=== PATIENT | female | born 1970 | race Caucasian/White ===

== ENCOUNTER 2019-09-07 04:24 | Inpatient (IN) ==
[2019-08-30 18:48] LABS: Appearance,Urine CLEAR; Bacteria,Urine 0 /hpf (0); Bilirubin,Urine NEG (NEG); Color,Urine YELLOW; Culture Indicated,Urine YES; Glucose,Urine (UA) NEGATIVE (NEG); Ketones,Urine NEG (NEG); Leukocyte Esterase,Urine 500 /uL (NEG); Nitrate,Urine NEG (NEG); Protein,Urine NEG (NEG); Specific Gravity,Urine 1.009 (1.000-1.035); Urine Blood NEG mg/dL (<0.03); Urine RBC 1 /hpf (0-1); Urine Squamous Epithelial Cell 4 /hpf (0-4); Urine Transitional Epi Cells 1 /hpf (0-2); Urine WBC 10 /hpf (0-4); Urobilinogen,Urine NEG (NEG)
[2019-08-30 19:39] LABS: Basophils # (Auto) 0 K/mcL (0.0-0.3); Basophils % (Auto) 0.3 % (0.0-2.0); Eosinophils # (Auto) 0.1 K/mcL (0.0-0.7); Eosinophils % (Auto) 0.8 % (0.0-7.0); Granulocytes % (Auto) 65.1 % (38.0-78.0); Hematocrit 38.9 % (36.0-48.0); Hemoglobin 13.1 g/dL (12.0-15.0); Lymphocytes # (Auto) 2.1 K/mcL (1.5-4.8); Lymphocytes % (Auto) 24.4 % (15.5-49.0); Mean Corpuscular HGB Conc 33.5 g/dL (31.0-36.0); Mean Platelet Volume 7.3 fL (7.4-10.4); Monocytes # (Auto) 0.8 K/mcL (0.1-0.9); Monocytes % (Auto) 9.4 % (1.0-12.0); Platelet Count 339 K/mcL (140-440); RBC 4.23 M/mcL (4.00-5.20); Red Cell Distribution Width 14.1 % (11.5-14.5); WBC 8.6 K/mcL (4.5-11.0)
[2019-08-30 19:47] LABS: Blood Urea Nitrogen 6 mg/dl (6-20); Calcium 9.5 mg/dl (8.6-10.4); Carbon Dioxide 27 mmol/L (22-30); Chloride 98 mmol/L (96-108); Glomerular Filtration Rate 102; Glucose 85 mg/dL (70-105); Prothrombin Time 12.8 sec (11.9-14.5)
[2019-09-07] MEDS ORDERED: ceFAZolin 2 GM in DEXTROSE 5% IN WATER 50 ML IV SCH (06:00)
[2019-09-07] MEDS ORDERED: 0.9 % SODIUM CHLORIDE 9 ML, KETOROLAC 30 MG, ROPIVACAINE HCL/PF 49.5 ML, EPINEPHrine 0.... IJ SCH (06:00)
[2019-09-07 06:04] LABS: Appearance,Urine CLEAR; Bilirubin,Urine NEG (NEG); Color,Urine YELLOW; Culture Indicated,Urine NO; Glucose,Urine (UA) NEGATIVE (NEG); Ketones,Urine NEG (NEG); Leukocyte Esterase,Urine NEG /uL (NEG); Nitrate,Urine NEG (NEG); Protein,Urine NEG (NEG); Specific Gravity,Urine 1.013 (1.000-1.035); Urine Blood NEG mg/dL (<0.03); Urobilinogen,Urine NEG (NEG)
[2019-09-07] MEDS ORDERED: SCOPOLAMINE 1 PATCH PATCH TOPICAL ONE (07:21)
[2019-09-07] MEDS ORDERED: DEXAMETHASONE 10 MG/ML VIAL IV ONE (07:40)
[2019-09-07] MEDS ORDERED: PROPOFOL 200 MG/20 ML VIAL IV ONE (07:40)
[2019-09-07] MEDS ORDERED: LIDOCAINE HCL/PF 100 MG/5 ML SYRINGE IV ONE (07:40)
[2019-09-07] MEDS ORDERED: ONDANSETRON 4 MG/2 ML VIAL IV ONE (07:40)
[2019-09-07] MEDS ORDERED: KETAMINE 100 MG/ML ML IV ONE (07:40)
[2019-09-07] MEDS ORDERED: TRANEXAMIC ACID 1,000 MG/10 ML VIAL IV ONE (07:40)
[2019-09-07] MEDS ORDERED: MIDAZOLAM 5 MG/5 ML VIAL IV ONE (07:40)
[2019-09-07] MEDS ORDERED: ROPIVACAINE HCL/PF 30 ML VIAL IJ ONE (07:40)
[2019-09-07] MEDS ORDERED: GLYCOPYRROLATE 0.2 MG/ML VIAL IV ONE (07:40)
[2019-09-07] MEDS ORDERED: GENTAMICIN SULFATE 800 MG/20 ML VIAL IR ONE (08:27)
[2019-09-07] MEDS ORDERED: fentaNYL 100 MCG/2 ML VIAL IV PRN (09:07)
[2019-09-07] MEDS ORDERED: ONDANSETRON 4 MG/2 ML VIAL IV PRN ×2 (09:07→09:13)
[2019-09-07] MEDS ORDERED: IPRATROPIUM/ALBUTEROL 3 ML AMPUL.NEB NEB PRN (09:07)
[2019-09-07] MEDS ORDERED: LORazepam 2 MG/ML VIAL IV PRN (09:07)
[2019-09-07] MEDS ORDERED: ACETAMINOPHEN 1,000 MG/100 ML BOTTLE IV ONE (09:07)
[2019-09-07] MEDS ORDERED: METHOCARBAMOL 1,000 MG/10 ML VIAL IV PRN (09:07)
[2019-09-07] MEDS ORDERED: POLYETHYLENE GLYCOL 3350 17 GM PACKET PO PRN (09:13)
[2019-09-07] MEDS ORDERED: FLEETS ADULT ENEMA PR PRN (09:13)
[2019-09-07] MEDS ORDERED: BISACODYL 10 MG SUPP.RECT PR PRN (09:13)
[2019-09-07] MEDS ORDERED: BENZOCAINE/MENTHOL 1 LOZENGE PO PRN (09:13)
[2019-09-07] MEDS ORDERED: MAGNESIUM HYDROXIDE 30 ML ORAL.SUSP PO PRN (09:13)
[2019-09-07] MEDS ORDERED: LACTATED RINGERS 1,000 ML IV SCH (09:15)
[2019-09-07] MEDS ORDERED: ALBUTEROL SULFATE 1 PUFF INHALER IH PRN (09:38)
[2019-09-07] MEDS ORDERED: OMEPRAZOLE 20 MG CAPSULE PO PRN (09:38)
--- NOTE | 2019-09-07 09:42 | Brief Operative Note ---
Date of procedure: 09/07/19 Pre-op diagnosis: DJD right knee Post-op diagnosis: same Procedure: R TKR Grafts/Implants: Yes Anesthesia: AUGUSTUS Surgeon: Catracho Romano Outside Repairer Special: Jann Case Estimated blood loss (cc): 50 Tourniquet Time (Minutes): 65 Specimens Removed/Pathology: none sent Condition: stable Disposition: PACU
[2019-09-07] MEDS: MEPERIDINE 25 MG/ML SYRINGE IV PRN ×2 (10:09→10:15)
[2019-09-07] MEDS ORDERED: LORazepam 2 MG/ML VIAL IV ONE (10:26)
--- NOTE | 2019-09-07 10:29 | XRay Report ---
CLINICAL INFORMATION: Post-op total knee COMPARISON: None. FINDINGS: Total knee prostheses is anatomically aligned. No osseous abnormality. Periarticular soft tissue swelling as expected. IMPRESSION: Negative Interpreted and Authenticated by: Roger Nicole 09/07/19
--- NOTE | 2019-09-07 11:27 | Operative Note ---
DATE OF OPERATION: 09/07/2019 PREOPERATIVE DIAGNOSIS: Degenerative joint disease of the right knee. POSTOPERATIVE DIAGNOSIS: Degenerative joint disease of the right knee. OPERATION: Sigifredo right total knee replacement. SURGEON: Catracho Romano M.D. SHARED SERVICES AND OUTSOURCING MANAGER: Jann Case PA-C. The PA's assistance was required for the safe and efficient completion of the entire case. This provider's expertise and technical skill were required throughout the case. The PA assisted with preoperative coordination, intraoperative retraction, wound closure, dressing and splint application, as well as postoperative documentation and care coordination. ANESTHESIA: General done by Rebecca Willis M.D. TOURNIQUET TIME: 65 minutes. ESTIMATED BLOOD LOSS: 50 mL. SUMMARY OF PROCEDURE: General anesthesia was attained. The right leg was prepped and draped. The tourniquet was put up. An incision was made from the quadriceps to the tibial tubercle. This was taken down sharply through the subcutaneous tissue. A midvastus approach was used. The vastus was split as was the retinaculum and 1 cm or so of quadriceps. The medial soft tissue was elevated. The fat pad was debrided. The anterior menisci were resected. The patella was mobilized laterally without everting it. The patient had a mild patella baja but mobilization was easily accomplished. Two pins were next drilled into the femur and the array attached. This was also done in the tibia. The hip center was located with counterclockwise rotation of the leg in 20 degrees of flexion. The medial and lateral menisci were next identified. Balancing was then done with the goal being 19 mm space in extension and 20 in flexion and balanced throughout. The anatomical landmarks were then marked and the registration completed. The tibial cut was made using the robotic arm followed by the femur cuts, starting with posterior, then anterior, then bevels, and distal. tibial rotation was adjusted using the SIGIFREDO . The tibia was reamed and broached The patella was everted. A measued reseaction was done of 9 mm , leaving 13 mm The bone was resected. The rotation of the tibia was adjusted using the robotic assistance. The trials were then done and we got an excellent combination of full range of motion and stability with a size 3 tibia, size 3 femur, and 9 mm cruciate-retaining insert. The patella was also cemented and clamped until the cement hardened injections/ Blocks were placed throughout the periosteum by protocol. We then copiously irrigated and dried the bone surfaces. The components were next cemented in. The knee was put in full extension for curing of the cement. Excess cement was removed. The tourniquet was let down. All bleeding points were coagulated. Bleeding was minimal. The quadriceps and medial retinaculum were closed with two running sutures of Stratafix. The subcutaneous tissue was closed with buried 2-0 Monocryl, and the skin was closed with tristan. A sterile compressive dressing was applied. The sponge and needle count was correct. The patient tolerated the procedure well and was taken to the recovery room in stable condition. TJF:agustin Job ID: [id number] Doc ID: [id number] Catracho Romano MD MTDD
[2019-09-07] MEDS: 0.9 % SODIUM CHLORIDE 1,000 ML IV SCH ×2 (11:34→23:40)
[2019-09-07] MEDS: HYDROcodone/APAP 10/325MG TABLET PO PRN ×4 (14:45→15:24)
[2019-09-07] MEDS: 0.9 % SODIUM CHLORIDE 10 ML SYRINGE IV SCH ×2 (15:25→20:44)
[2019-09-07] MEDS: ceFAZolin 1 GM VIAL IV SCH ×2 (15:42→23:09)
[2019-09-07] MEDS ORDERED: oxyCODONE/APAP 5/325MG TABLET PO PRN (18:03)
[2019-09-07] MEDS ORDERED: oxyCODONE/APAP 5/325MG TABLET PO ONE (18:35)
[2019-09-07] MEDS ORDERED: METHOCARBAMOL 750 MG TABLET PO ONE (18:36)
[2019-09-07] MEDS: METHOCARBAMOL 750 MG TABLET PO PRN (18:41)
[2019-09-07] MEDS: APIXABAN 5 MG TABLET PO SCH (20:42)
[2019-09-07] MEDS: lamoTRIgine 100 MG TABLET PO SCH (20:42)
[2019-09-07] MEDS: DOCUSATE SODIUM 100 MG CAPSULE PO SCH (20:42)
[2019-09-07] MEDS ORDERED: SENNOSIDES 1 TABLET PO SCH (21:00)
[2019-09-07] MEDS ORDERED: DOXEPIN 25 MG CAPSULE PO SCH (21:00)
[2019-09-07] MEDS ORDERED: HYDROmorphone 2 MG/ML VIAL ONE (21:14)
[2019-09-07] MEDS ORDERED: oxyCODONE HCL 5 MG TABLET PO ONE (21:14)
[2019-09-07] MEDS: HYDROmorphone 2 MG/ML VIAL IV PRN (21:17)
[2019-09-07] MEDS: oxyCODONE HCL 5 MG TABLET PO PRN ×2 (21:19→23:10)
[2019-09-07] MEDS: ACETAMINOPHEN 650 MG/65 ML BOTTLE IV PRN (22:08)
[2019-09-08] MEDS: HYDROmorphone 2 MG/ML VIAL IV PRN ×5 (00:29→08:44)
[2019-09-08] MEDS: METHOCARBAMOL 750 MG TABLET PO PRN ×2 (02:20→10:52)
[2019-09-08] MEDS: ACETAMINOPHEN 650 MG/65 ML BOTTLE IV PRN ×2 (02:21→06:50)
[2019-09-08] MEDS: oxyCODONE HCL 5 MG TABLET PO PRN (03:30)
[2019-09-08] MEDS: 0.9 % SODIUM CHLORIDE 10 ML SYRINGE IV SCH (04:51)
[2019-09-08] MEDS ORDERED: oxyCODONE HCL 5 MG TABLET PO PRN ×3 (06:31→06:41)
[2019-09-08] MEDS ORDERED: HYDROmorphone 2 MG TABLET PO PRN (07:41)
--- NOTE | 2019-09-08 07:42 | Discharge Summary ---
Ortho Discharge - TKA - Patient Instructions Diet: Regular Diet Activity: activity as tolerated Total Knee Protocol: For Total Knee: Start ROM NATALIE with stationary bike or rocking chair. Work on gaining full extension of knee. Posterior dislocation precautions provided. Hip abductor strengthening and gait training instructions provided. Apply Cryocuff as instructed. Dressing Care: May shower in 3 days - Follow Up Plan Follow Up Appointments: Jann Case PA-C [Physician Vice President For Instruction] - Disposition: Home, Self-Care Prognosis: Fair Rehab Potential: Fair - Orders For Discharge Prescriptions: HYDROmorphone [Dilaudid] 4 mg PO Q4-6HP PRN #50 tablet PRN Reason: Per Pain Protocol Apixaban [Eliquis] 5 mg PO BID #30 tab [facility]: [facility] Additional Discharge Orders: Physical Therapy at Discharge - TKA Location: None Selected
--- NOTE | 2019-09-08 07:48 | Discharge Summary ---
Providers - Providers Patient information: Note initiated : 09/08/19 at 7:47 am Service Date, if different from initiated Date: [] Patient: Jennifer Bernard 49 y/o F admitted on 09/07/19 for Right Total Knee Arthroplasty Sigifredo. Chief Complaint: [] Discharge date: 09/08/19 Hospitalization Discharge diagnosis: right knee replacement Exam - Exam Clean and dry: Yes Weight bearing status: full Range of motion: can lift ankle Ortho Discharge - TKA - Patient Instructions Diet: Regular Diet Activity: activity as tolerated Total Knee Protocol: For Total Knee: Start ROM NATALIE with stationary bike or rocking chair. Work on gaining full extension of knee. Posterior dislocation precautions provided. Hip abductor strengthening and gait training instructions provided. Apply Cryocuff as instructed. - Follow Up Plan Follow Up Appointments: Jann Case PA-C [Physician Post Secondary Professional] - Disposition: Home, Self-Care Prognosis: Fair Rehab Potential: Fair - Orders For Discharge Prescriptions: HYDROmorphone [Dilaudid] 4 mg PO Q4-6HP PRN #50 tablet PRN Reason: Per Pain Protocol Apixaban [Eliquis] 5 mg PO BID #30 tab [facility]: [facility] Additional Discharge Orders: Physical Therapy at Discharge - TKA Location: None Selected Pending Studies Resuscitation Status Full Code Diet Regular Diet Start WedSep 07 Lunch Apixaban (Eliquis) 5 mg PO BID [facility] Last Admin: 09/07/19 20:42 Dose: 5 mg Documented by: BRENT Docusate Sodium (Colace) 100 mg PO BID [facility] Last Admin: 09/07/19 20:42 Dose: 100 mg Documented by: BRENT Doxepin HCl (Sinequan) 200 mg PO [facility] Last Admin: 09/07/19 20:42 Dose: 200 mg Documented by: BRENT Hydromorphone HCl (Dilaudid) 2 mg IV Q1HP PRN; Protocol PRN Reason: Per Pain Protocol Last Admin: 09/08/19 04:55 Dose: 2 mg Documented by: Admin: 09/08/19 03:31 Dose: 1 mg Documented by: Admin: 09/08/19 02:20 Dose: 1 mg Documented by: Admin: 09/08/19 00:29 Dose: 1 mg Documented by: Admin: 09/07/19 21:17 Dose: 1 mg Documented by: BRENT Sodium Chloride (Sodium Chloride 0.9%) 1,000 mls @ 75 mls/hr IV .[id number] [facility] Last Admin: 09/07/19 23:40 Dose: 75 mls/hr Documented by: Infusion: 09/07/19 23:40 Dose: 75 mls/hr Documented by: Admin: 09/07/19 11:34 Dose: 75 mls/hr Documented by: ЮЛИЯ Acetaminophen (Ofirmev) 650 mg in 65 mls @ 130 mls/hr IV Q4HP PRN; Protocol PRN Reason: PAIN/FEVER > 101 Last Admin: 09/08/19 06:50 Dose: 130 mls/hr Documented by: Infusion: 09/08/19 02:51 Dose: 130 mls/hr Documented by: Admin: 09/08/19 02:21 Dose: 130 mls/hr Documented by: Infusion: 09/07/19 22:38 Dose: 130 mls/hr Documented by: Admin: 09/07/19 22:08 Dose: 130 mls/hr Documented by: BRENT Lamotrigine (Lamictal) 200 mg PO BID [facility] Last Admin: 09/07/19 20:42 Dose: 200 mg Documented by: BRENT Methocarbamol (Robaxin) 750 mg PO TIDP PRN PRN Reason: Muscle Spasm Last Admin: 09/08/19 02:20 Dose: 750 mg Documented by: Admin: 09/07/19 18:41 Dose: 750 mg Documented by: BRENT Oxycodone HCl (Roxicodone) 0 mg PO Q4HP PRN; Protocol PRN Reason: Per Pain Protocol Last Admin: 09/08/19 06:52 Dose: 20 mg Documented by: NEY Bejarano (Senokot) 2 tab PO HS [facility] Last Admin: 09/07/19 20:42 Dose: 2 tab Documented by: BRENT Sodium Chloride (Saline Flush) 10 ml IV Q8 [facility] Last Admin: 09/08/19 04:51 Dose: Not Given Documented by: Admin: 09/07/19 20:44 Dose: Not Given Documented by: Admin: 09/07/19 15:25 Dose: Not Given Documented by: ЮЛИЯ Shift Summary 09/08/19 03:40 Shift Summary by Eyal Medina Addendum entered by Eyal Medina 09/08/19 05:25: Pt received 2mg IV Dilaudid @ 0455 for knee pain 710 - pain 4/10 @ 0515. Addendum entered by Eyal Medina 09/08/19 04:01: NS infusing to her LT F/A @ 75ml/hr. Original Note: Pt has not slept this shift. Pain control has remained an issue. Contacted Dr Romano early in the shift - changed pain med orders. Pt's pain has been 5-9/10 all shift. IV OFIRMEV 650mg Q 4hr PRN given x2 - last @ 0210. PO Oxycodone 10mg Q 4hr PRN given x3 - last @ 0330. IV morphine several doses - D/C'd. IV Dilaudid 1-2mg Q1hr PRN - last dose 1mg IV given @ 0330 (limited use 2nd to low B/P's). Pt has declined Cryo-cuff - cold does not penetrate the laci wrap, and weight increases pain. She states the CPM seems to help with pain control, as well as AMB. CPM on early in the eran, and on again @ 0330 - 0-30 degrees. She has been up AMB to & from the BR, as well as out in [place] x2 - gait very stable w/ FWW. Voiding into commode in BR - PVR scans 348ml & 321ml last @ 2150 - appears to be her normal. No BM. No nausea. Laci wrap RT knee - C,D,I. VS - B/P runs low - 99/59 @ 2315, and 111/60 @ 0330. Pt wears O2 for sleep @ home - currently 93% w/ O2 2L via N/C, - all else WNL. She is A&Ox4, calm, pleasant, & cooperative. has been @ bedside through the [facility]. Initialized on 09/08/19 03:40 - END OF NOTE
[2019-09-08] MEDS: lamoTRIgine 100 MG TABLET PO SCH (08:30)
[2019-09-08] MEDS: APIXABAN 5 MG TABLET PO SCH (08:30)
[2019-09-08] MEDS: DOCUSATE SODIUM 100 MG CAPSULE PO SCH (08:30)
[2019-09-08] MEDS ORDERED: ASPIRIN 81 MG TAB.CHEW PO SCH (09:00)
[2019-09-08] MEDS ORDERED: CALCIUM (OYSTER SHELL) 500 MG TABLET PO SCH (09:00)
[2019-09-08] MEDS ORDERED: DULoxetine 30 MG CAPSULE PO SCH (09:00)
[2019-09-08] MEDS ORDERED: MAGNESIUM OXIDE 400 MG TABLET PO SCH (09:00)
[2019-09-08] MEDS ORDERED: ASCORBIC ACID 500 MG TABLET PO SCH (09:00)
[2019-09-08] MEDS ORDERED: buPROPion 150 MG TAB.XL.24H PO SCH (09:00)
[2019-09-08] MEDS ORDERED: MULTIVIT,THER IRON,CA,FA & MIN 1 TABLET PO SCH (09:00)
[2019-09-08] MEDS ORDERED: PNEUMOCOCCAL 23-VAL P-SAC VAC 0.5 ML SYRINGE IM ONE (10:00)
[2019-09-08] MEDS ORDERED: KETOROLAC 30 MG/ML VIAL IV ONE (10:31)
[2019-09-08] MEDS: 0.9 % SODIUM CHLORIDE 1,000 ML IV SCH (12:47)
== END 2019-09-08 13:10 | disposition home or self-care (01) | DRG 470 ==
LOC: MEDSUR 04:24
PROVIDERS: ADMIT Orthopaedic Surgery Foot and Ankle Surgery; ATTEND Orthopaedic Surgery Foot and Ankle Surgery

== ENCOUNTER 2021-12-15 09:14 | Inpatient (IN) ==
[2021-12-09 16:41] LABS: Appearance,Urine Clear (Clear); Bilirubin,Urine Negative (Negative); Color,Urine Yellow; Culture Indicated,Urine No; Glucose,Urine (UA) Negative (Negative); Ketones,Urine Negative (Negative); Leukocyte Esterase,Urine Negative /uL (Negative); Nitrate,Urine Negative (Negative); Protein,Urine Negative (Negative); Specific Gravity,Urine 1.015 (1.000-1.035); Urine Blood Negative ery/mcL (Negative); Urobilinogen,Urine Normal
[2021-12-09 16:59] LABS: Basophils # (Auto) 0.06 K/mcL (0.00-0.30); Basophils % (Auto) 0.6 % (0.0-2.0); Eosinophils # (Auto) 0.26 K/mcL (0.00-0.70); Eosinophils % (Auto) 2.7 % (0.0-7.0); Hematocrit 36.9 % (34.1-44.9); Hemoglobin 12.2 g/dL (11.2-15.7); Lymphocytes # (Auto) 3.14 K/mcL (1.50-4.80); Lymphocytes % (Auto) 32.7 % (15.5-49.0); Mean Cell Volume 92.9 fL (80.0-100.0); Mean Corpuscular HGB Conc 33.1 g/dL (31.0-36.0); Mean Platelet Volume 9.7 fL (7.4-10.4); Monocytes # (Auto) 1.01 K/mcL (0.10-0.90); Monocytes % (Auto) 10.5 % (1.0-12.0); Neutrophils % (Auto) 53.5 % (38.0-78.0); Platelet Count 334 K/mcL (140-440); RBC 3.97 M/mcL (3.59-5.38); Red Cell Distribution Width 13.4 % (11.5-14.5); WBC 9.6 K/mcL (4.5-11.0)
[2021-12-09 18:45] LABS: Blood Urea Nitrogen 9 mg/dL (6-20); Calcium 8.9 mg/dL (8.6-10.4); Carbon Dioxide 27 mmol/L (22-30); Chloride 98 mmol/L (96-108); Glomerular Filtration Rate 100; Glucose 84 mg/dL (70-105)
--- NOTE | 2021-12-12 07:30 | EKG ---
[facility] Test Date: 2021-12-09 Pat Name: Jennifer Bernard Department: EVAN Room: Gender: Female Maid Cleaning Cooking: : 1970 Requested By: Linus Burdick Order Number: [id number] Reading MD: Janie Cooper D.O. Measurements Intervals [place] Rate: 88 P: 75 SD: 172 QRS: 64 QRSD: 92 T: 31 QT: 369 QTc: 447 Interpretive Statements Sinus rhythm Probable left atrial enlargement Electronically Signed On 12-12-2021 7:29:50 PDT by Janie Cooper D.O. /[id number]/[id number]
[~2021-12-15 09:14] MED LIST: 0.9 % SODIUM CHLORIDE 9 ML, KETOROLAC 30 MG, ROPIVACAINE HCL/PF 49.5 ML, EPINEPHrine 0.... IJ SCH; ACETAMINOPHEN 500 MG TABLET PO SCH; CELECOXIB 200 MG CAPSULE PO SCH; IPRATROPIUM/ALBUTEROL 3 ML AMPUL.NEB NEB PRN; PREGABALIN 75 MG CAPSULE PO SCH; SCOPOLAMINE 1 PATCH PATCH TOPICAL PRN; ceFAZolin 2 GM in DEXTROSE 5% IN WATER 50 ML IV SCH; oxyCODONE 10 MG TAB.ER.12H PO SCH
--- OUTSIDE RECORDS SUMMARY | 2021-12-15 09:17 | External Medical Summary ---
:1970 Author Care Team Providers Name Role Phone MARCOS MAXIM MELGOZA Primary Care Provider [phone] FREEDOM DOWNS MD Primary Care Provider [phone] Allergies Code Code System Name Reaction Severity Status Onset Adhesive Tape Other Mild to Moderate Active 954133 RxNorm Imitrex Dizziness Moderate Active Penicillins Dizziness Moderate Active Rash Moderate Active Vomiting Moderate Active 9601 RxNorm Scopolamine Dizziness Severe Active Other Moderate Active 195406 RxNorm Toviaz Active Medications Name Status Start Date Stop Date albuterol sulfate HFA 90 mcg/actuation aerosol Completed 11/04/2021 inhaler alprazolam 0.5 mg tablet Completed aspirin 81 mg tablet,delayed release Completed 11/03/2021 Take 1 tablet twice a day by oral route. azithromycin 250 mg tablet Completed 04/24 buprenorphine 8 mg-naloxone 2 mg sublingual tablet Completed 11/04/2021 DISSOLVE 3 TABLETS (24MG) UNDER TONGUE DAILY 28 DAYS bupropion HCl XL 150 mg 24 hr tablet, extended Active 0 11/04/2021 Not available release bupropion HCl XL 300 mg 24 hr tablet, extended release Active Not available TAKE 1 TABLET BY MOUTH ONCE A DAY psyozlibon-bwtfiafkxilww-lnvbjaxl 50 mg-325 Completed 04/24/2019 mg-40 mg tablet Calcium Magnesium Active Not available cefuroxime axetil 250 mg tablet Active Not available TAKE 1 TABLET BY MOUTH TWICE A DAY cephalexin 500 mg capsule Completed 2018 chlorthalidone 25 mg tablet Completed 05/2020 Take 1 tablet every day by oral route as needed for 20 days. ciprofloxacin 250 mg tablet Completed 01/2019 ciprofloxacin 500 mg tablet Completed 01/2019 Cymbalta 30 mg capsule,delayed release Active Not available Take 1-2 capsules every morning dexamethasone 4 mg tablet Completed 2021 TAKE 1AND 1/2 TABLETS BY MOUTH ONCE A DAY X 7 DAYS dicyclomine 20 mg tablet Completed 019 doxepin 100 mg capsule Active Not avail able TAKE 2 CAPSULES BY MOUTH AT BEDTIME doxycycline monohydrate 100 mg capsule Active Not available duloxetine 20 mg capsule,delayed release Completed 11/04/2021 TAKE 1 CAPSULE BY MOUTH ONCE A DAY duloxetine 60 mg capsule,delayed release Active Not available TAKE 2 CAPSULE BY MOUTH ONCE A DAY Eliquis 2.5 mg tablet Completed 11/04/2021 Flax Seed Oil 1,000 mg capsule Completed 0 11/03/2021 Take 2 capsules every day by oral route in the morning. Flovent HFA 110 mcg/actuation aerosol inhaler Completed 11/04/2021 Inhale 2 puffs twice a day by inhalation route. fluconazole 100 mg tablet Completed 2018 fluoxetine 40 mg capsule Completed 022 gabapentin 300 mg capsule Completed 2021 TAKE 1 CAPSULE BY MOUTH THREE TIMES A DAY NEEDED gabapentin 600 mg tablet Completed 019 HM Vitamin C 1000 mg tablet Completed 10/21 Take 5000 mg every day by oral route in the morning. hydrocodone 10 mg-acetaminophen 325 mg tablet Active Not available hydrocodone 7.5 mg-acetaminophen 325 mg tablet Active Not available TAKE 1-2 TABLETS BY MOUTH EVERY 4 TO 6 HOURS NEEDED FOR PAIN ibuprofen 800 mg tablet Completed 11/03/2021 11/04/19 22 imipramine 25 mg tablet Completed 04/24/20 19 ipratropium 0.5 mg-albuterol 3 mg (2.5 mg base)/3 mL n ebulization soln Completed 11/04/2021 Inhale 3 mL 3 times a day by nebulization route as needed. lamotrigine 150 mg tablet Completed 2018 lamotrigine 200 mg tablet Active Not av ailable TAKE 1 TABLET BY MOUTH TWICE A DAY Latuda 20 mg tablet Completed 11/04/2021 levofloxacin 500 mg tablet Completed 04/24 Linzess 145 mcg capsule Active Not avai lable Linzess 290 mcg capsule Completed 11/04/19 22 Lipitor 20 mg tablet Completed 11/04/2021 Take 1 tablet every day by oral route as directed. lubiprostone 24 mcg capsule Active Not available Take 1 capsule twice a day by oral route with meals. meloxicam 15 mg tablet Completed metformin ER 500 mg tablet,extended release 24 hr Completed 11/04/2021 TAKE 1 TABLET BY MOUTH ONCE A DAY methylprednisolone 4 mg tablets in a dose pack Completed 11/04/2021 FOLLOW PACKAGE DIRECTIONS multivitamin Active Not available Multivitamin 50 Plus tablet Completed 10/21 Take 1 tablet every day by oral route in the morning. Nexium 40 mg capsule,delayed release Active Not available Take 1 capsule every day by oral route. nitrofurantoin macrocrystal 100 mg capsule Completed 04/24/2019 nitrofurantoin monohydrate/macrocrystals 100 mg capsule Complete d 11/04/2021 TAKE 1 CAPSULE BY MOUTH TWICE A DAY X 7 DAYS omeprazole 20 mg capsule,delayed release Active Not available oxycodone 20 mg tablet Completed 9 oxycodone-acetaminophen 5 mg-325 mg tablet Completed 11/03/2021 oxycodone-acetaminophen 7.5 mg-325 mg tablet Completed 11/03/2021 pantoprazole 40 mg tablet,delayed release Completed 11/04/2021 promethazine 6.25 mg/5 mL oral syrup Completed 04/24/2019 risperidone 2 mg tablet Completed 04/24/20 19 risperidone 3 mg tablet Completed 04/24/20 19 risperidone 4 mg tablet Active Not avai lable TAKE 1 TABLET BY MOUTH ONCE A DAY terbinafine HCl 250 mg tablet Completed tolterodine ER 4 mg capsule,extended release 24 Completed 04/24/2019 hr tramadol 50 mg tablet Completed 09/28/2019 Trulance 3 mg tablet Active Not availab le Take 1 tablet every day by oral route. Tylenol Extra Strength 500 mg tablet Completed 09/28/2019 Take 1000 mg 4 times a day by oral route. Vitamin C 1,000 mg tablet Active Not av ailable Take 2 tablets every day by oral route. Vitamin D 5,000 unit tablet Active Not available Take 1 tablet every day by oral route. zinc Active Not available Problems None recorded. Procedures Date Name Performed by 09/07/2019 Knee Surgery Information not avai lable Notes: RIGHT KNEE 04/11/2019 Knee Surgery Information not avai lable Notes: RIGHT MENISCUS & ACL REPAIR - D R QUINTANILLA Repair of Cystocele Information not avai lable Hysterectomy Information not avai lable 12/28/2019 US, Duplex, Arterial, Lower Extremity, [facility] [address] [facility] [place] [id number] (Work Place) 11/04/2021 XR, Abdomen [facility] [address] [facility] [place] [address] (Work Place) Results Lab Results None recorded. Past Encounters 11/04/2021 Gastroesophageal Reflux Disease; Dysphag ia; Chronic Constipation with Overflow December LORI Heath: [address] [place] [address], [facility] [address], [place] [address], Ph. Social History Tobacco Smoking Status Former Smoker (1 pack per week) Vaccine List Notes: PT DECLINES FLU VACCINE Plan of Care Reminders Provider Appointments None recorded. Lab None recorded. Referral None recorded. Procedures None recorded. Surgeries None recorded. Imaging None recorded. Vitals 11/04/2021 01:45PM New Patient 45 Height Weight BMI Blood Pressure 5 ft 5 in 195 lbs 32.4 kg/m2 134/82 mm[Hg] 09/28/2019 03:00PM Established Patient 30 Height Weight BMI Blood Pressure 5 ft 5 in 192 lbs 32 kg/m2 (1) 127/73 mm[H g] (2) 119/69 mm[Hg ] 04/24/2019 10:30AM New Patient 30 Height Weight BMI Blood Pressure 5 ft 5 in 208 lbs 34.6 kg/m2 (1) 126/68 mm[H g] (2) 125/66 mm[Hg ] 03/16/2019 Height Blood Pressure 5 ft 5 in 122/74 mm[Hg]
--- OUTSIDE RECORDS SUMMARY | 2021-12-15 09:17 | External Medical Summary | Encounter Summary ---
:1970 Author Care Team Providers Name Role Phone Roger Harris Primary Care Provider [phone] Zacarias Bro MD Primary Care Provider [phone] Reason for Visit reflux/GERD; abdominal pain; diarrhea; c onstipation Constipation, Diarrhea, GERD, Abdominal Pain Assessment and Plan 1. Gastroesophageal reflux disease Advised to take her PPI on an empty sto mach and follow with a meal in 30-45 minutes. This class of medication is activated by food. Schedule for EGD. GERD recommendations - Avoid fatty, acidic, and spicy foods, and large meals - Do not lie down for at least 2 hours a fter meals - Elevated the head of the bed 4 inches - Discontinue any/all tobacco and alcoho l products - Avoid caffeine and carbonation - Avoid chocolate and mints - Avoid aspirin and non-steroidal anti-i nflammatory agents (NSAID) such as Aleve, Advil, Mobic, Naproxen, Ibuprofen, etc. - If overweight, try to attain ideal bod y weight. Please consult with your primary care physician prior to starting an exercise or weight loss program. - Review medication with your doctor to see if what you are taking may be worsening your reflux/heartburn upper endoscopy procedure (EGD) (PROC ) 2. Dysphagia Schedule for EGD to include esophageal biopsies and esophageal dilatation. Recommend you get in the habit of eating slowly, chewing thoroughly, alternating liquids with solids in efforts at preventing episodes of transient food obstruction. 3. Chronic constipation with overflow Complains of chronic constipation with episodes of diarrhea suspicious for paradoxical/overflow diarrhea. Sitz marker study to differentiate betwe en poor colonic transit vs dyssynergic defecation. Trial of lubiprostone 24 mcg BID with fo od. If lubiprostone is not covered by her insurance, will try Trulance 3 mg daily. lubiprostone 24 mcg capsule XR, abdomen - Sitz marker study, pletemo ruiz note location of any retained markers 5 days after ingestion Medciare. No auth r equired. Discussion Note Thank you for the opportunity to partic ipate in this patient's care. Please don't hesitate to call with any questions. Information was gathered from both the p atient and any records that were sent/already scanned into the chart. The patient was informed that any tests that are ordered here including blood work or imagin g, and results are non-emergent will be reviewed together in detail at the next clinic visit. Any serious abnormalities will be called to the patient with further instructions. Patient educational handouts: No information available. Plan of Care Reminders Provider Appointments Colon on or around Roger lira MD 09/23/2022 Lab None recorded. Referral None recorded. Procedures Upper Endoscopy 11/04/2021 [facility] Procedure (EGD) (PROC) Medical C enter, Special Procedures / End oscopy Surgeries None recorded. Imaging XR, Abdomen 11/04/2021 [facility] Radiology Medications Name Start Date bupropion HCl XL 150 mg 24 hr tablet, extended release 11/04/2021 Calcium Magnesium cefuroxime axetil 250 mg tablet TAKE 1 TABLET BY MOUTH TWICE A DAY Cymbalta 30 mg capsule,delayed release Take 1-2 capsules every morning doxepin 100 mg capsule TAKE 2 CAPSULES BY MOUTH AT BEDTIME doxycycline monohydrate 100 mg capsule hydrocodone 10 mg-acetaminophen 325 mg tablet hydrocodone 7.5 mg-acetaminophen 325 mg tablet TAKE 1-2 TABLETS BY MOUTH EVERY 4 TO 6 HOURS NEEDE D FOR PAIN lamotrigine 200 mg tablet TAKE 1 TABLET BY MOUTH TWICE A DAY Linzess 145 mcg capsule Take 1 capsule once daily 30 minutes prior to a meal lubiprostone 24 mcg capsule Take 1 capsule twice a day by oral route with meals. multivitamin Nexium 40 mg capsule,delayed release Take 1 capsule every day by oral route. Trulance 3 mg tablet Take 1 tablet every day by oral route. Vitamin C 1,000 mg tablet Take 2 tablets every day by oral route. Vitamin D 5,000 unit tablet Take 1 tablet every day by oral route. zinc Medications Administered None recorded. Vitals Height Weight BMI Blood Pressure 5 ft 5 in 195 lbs 32.4 kg/m2 134/82 mm[Hg] Results Lab Results None recorded. Allergies Code Code System Name Reaction Severity Onset Adhesive Tape Other Mild to Moderate 221195 RxNorm Imitrex Dizziness Moderate Penicillins Dizziness Moderate Rash Moderate Vomiting Moderate 9601 RxNorm Scopolamine Dizziness Severe Other Moderate 352583 RxNorm Toviaz Problems None recorded. Procedures Date Name Performed by 09/07/2019 Knee Surgery Information not avai lable Notes: RIGHT KNEE 04/11/2019 Knee Surgery Information not avai lable Notes: RIGHT MENISCUS & ACL REPAIR - D R QUINTANILLA Repair of Cystocele Information not avai lable Hysterectomy Information not avai lable 11/04/2021 XR, Abdomen [facility] Radiology [address] [place] [address] (Work Place) Vaccine List Notes: PT DECLINES FLU VACCINE Social History Tobacco Smoking Status Former Smoker (1 pack per week) What type of diet are you REGULAR following? How many children do you have? 3 Are you able to walk? YESWOREST Are you currently employed? Y Are you able to care for Y yourself? How much tobacco do you chew? none Do you use sunscreen routinely? Y Do you or have you ever used Never used electronic e-cigarettes or vape? cigarettes Do you have an advanced N directive? General stress level Medium When did you quit smoking? 1-5yearssincelastcigarette What is your exercise level? Occasional Live alone or with others? with others Notes: HUSB AND What is your level of alcohol None consumption? Education 4 Year College Do you or have you ever used Never used smokeless tobacco smokeless tobacco? Are you sexually active? Y Are you passively exposed to N smoke? Hard of hearing or deaf in one N or both ears? swimming/diving Y What is your level of caffeine Heavy Notes: 4 Cups daily consumption? Do you or have you ever used N any other forms of tobacco or nicotine? Seat belts used routinely Y Smoke alarm in home Y At what age did you start 32 smoking tobacco? 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 Family History Relation Problem Onset Age of Age Notes Mother Malignant tumor of colon (No Information) N/A (No Notes) Mother Anxiety (No Information) N/A (No Notes) Mother Depressive disorder (No Information) N/A (No Notes) Mother Bipolar disorder (No Information) N/A (No Not es) Mother Chronic obstructive lung (No Information) N/A (No Notes) disease Mother Dementia (No Information) 60 AT 60 Mother Osteoporosis (No Information) N/A (No Notes) Father Anxiety (No Information) N/A (No Notes) Father Depressive disorder (No Information) N/A (No Notes) Father Arthritis (No Information) N/A (No Notes) Functional Status Unknown. Past Encounters 11/04/2021 Gastroesophageal Reflux Disease; Dysphag ia; Chronic Constipation with Overflow December [facility]: [address] [place] [address], [facility] [address], [place] [address], Ph. History of Present Illness Note: <div>51 year old female presents as a new patient with numerous GI complaints including chronic constipation with intermittent diarrhea, GERD and abdominal pain. Medical history notable for depression, migraines, cystocele, fibrocystic breast disease, COPD, reported history of drug seeking behavior. Pertinent surgical history notable for LINDA in 2007, cystocele/rectocele repair in 2011. Family history of colon cancer in her mother who of the disease at age 60. No known family history of IBD. Former smoker, quit in 2020. Denies alcohol consumption. </div><div> </div><div>Long history, dating back many years, of chronic constipation with intermittent episodes of diarrhea. This has worsened over the last several months. States she can go up to a month with no substantial bowel movement, other than occasional "rabbit pellet." When she goes an extended period of time without a bowel movement she will have N/V. This only occurs as a result of prolonged constipation. She does experience diffuse abdominal pain and bloating which is reliably relievedwith a bowel movement. She is no taking MiraLax and Metamucil and is managing a bowel movement every2 weeks. She will have diarrhea at times when she does finally move her bowels. No hematochezia or melena. States she tried Linzess without response. She has weaned off of all of her narcotic pain medications and this has not really changed her constipation. She has had 4 cystocele repairs and 1 rectocele repair. She has had 4 vaginal deliveries (1 with twins), largest baby weighing 10#. She did haveepisiotomy x 4. Last colonoscopy performed by Dr. Mehta on 09/22/17 with poor bowel prep. Colon was cleared with irrigation and cecum was reached. No polyps found. Random colon biopsies with focal melanosis coli but otherwise negative.</div><div> </div><div>Long history of GERD. Has been taking daily PPI for 4-5 years. Currently taking Nexium 40 mg daily, she is taking in the AM but does not eat breakfast for several hours after taking. She occasionally has breakthrough GERD symptoms despite daily PPI. She does experience some intermittent dysphagia to solids. Points to upper chest as site of transient obstruction. Onset of dysphagia ~1 year ago. Thinks she may have had a barium swallow several years ago but no records available for review. Prior EGD performed by Dr. Mehta on 09/22/17 with mild gastritis but no esophagitis seen. Antral biopsies with mild chronic gastritiswith features suggestive of reactive gastropathy; negative for H. pylori.</div> Review of Systems Comprehensive Gastroenterolo gy ROS Reported By: Patient Constitutional: Constitutional: feeling fine , no fever, no chills, no night sweats, no significant weigh t loss, weight gain (lbs) EENT: Ears: no difficulty hearing, earache. Nose: no nose/sinus problems, no nosebleeds. Thr oat: no sore throat, no hoarseness, no feeling of fo reign body in throat Cardiovascular: Cardiovascular: no chest lalita n, no palpitations, no fainting/lightheadedness, no cardiac disease, no high blood pressure, no heart infection , no artificial heart valve, no cardiac pacemaker, no implan caro heart Gastrointestinal: Upper GI: no pain when swall owing, not vomiting blood, normal appetite, difficulty swallow ing/ food sticking, indigestion or heartburn, nausea and/or vom iting. Lower GI: no blood in stool, no luisa or tarry st ools, no change in bowel/bladder habits, abdominal pain, cons tipation, excess gas or bloating, pain when defecating. Prior History: no ulcerative colitis, no Crohn's disease, no Irritabl e Bowel Syndrome, no colon polyps, no colon cancer, no Foster' s Esophagus, family history of colon polyps or colon cancer . Hepatology: no jaundice, no history of chronic liver dis ease, no hepatitis or exposure to hepatitis Integumentary: Skin: no change in skin colo r, no rashes Neurologic: Neurologic: good coordinatio n, no weakness, no memory loss, no seizures, no stroke, numbnes s, headaches, dizziness Psychiatric: Psych: psychiatric or emotio nal problems Endocrine: Endocrine: no history of thy roid disease, no hormonal changes Genitourinary: Genitourinary: no difficulty urinating, no change in urine appearance Musculoskeletal: Musculoskeletal: muscle ache s, muscle weakness Hematologic/Lymphatic: Hematologic/Lymphatic no blo od disorder, no bruising, no enlarged lymph nodes, no exc essive bleeding, not taking blood thinners Allergic/Immunologic: Allergy/Immunologic: no immu nologic problems Pulmonary: Pulmonary: no cough, no coug taylor up blood, no wheezing, no lung disease, no history of obstructive sleep apnea, shortness of breath, lung disease Eyes: Eyes: no blurred vision, no double vision, no history of glaucoma Physical Exam General Adult Exam- Male Reported By: Patient Constitutional: General Appearance: healthy- appearing, well-nourished, well-developed; Wearing a fa ce mask amid COVID-19 precautions. Level of Distress: NAD. Ambu lation: ambulating normally Psychiatric: Insight: good judgement. Men shahnaz Status: active and alert, normal mood, normal affect. Orienta tion: to time, to place, to person. Memory: recent memory normal , remote memory normal Head: Head: normocephalic, atrauma tic Eyes: Lids and Conjunctivae: non-i njected, no discharge, no pallor. Sclerae: non-icteric ENMT: Lips, Teeth, and Gums: no mo uth or lip ulcers, no bleeding gums, normal dentition. Oropharynx : moist mucous membranes, no erythema, no exudates, tonsils not enl arged. Tongue Normal Neck: Neck: trachea midline, no ma sses. Lymph Nodes: no cervical LAD, no supraclavicular LAD Lungs: Respiratory effort: no dyspn ea. Auscultation: breath sounds normal, good air movement, CTA excep t as noted, no wheezing, no rales/crackles, no rhonchi Cardiovascular: Heart Auscultation: RRR, nor mal S1, normal S2, no murmurs Abdomen: Inspection and Palpation: so ft, non-distended, no tenderness, no guarding, no rebound tendern ess, no masses. Liver: non-tender, no hepatomegaly. Spleen: non-te nder, no splenomegaly Musculoskeletal:: Motor Strength and Tone: nor mal, normal tone. Joints, Bones, and Muscles: normal movement of all extremities, no tenderness. Extremities: no cyanosis, no edema Neurologic: Gait and Station: normal gai t, normal station. Cranial Nerves: grossly intact Skin: Inspection and palpation: no rash, no lesions, good turgor, no jaundice; No stigmata of chr onic liver disease. Nails: normal Back: Thoracolumbar Appearance: no rmal curvature
[2021-12-15] MEDS ORDERED: TRANEXAMIC ACID 1,000 MG/10 ML VIAL ONE (13:05)
[2021-12-15] MEDS ORDERED: SUGAMMADEX SODIUM 200 MG/2 ML VIAL IV ONE (13:05)
[2021-12-15] MEDS ORDERED: GLYCOPYRROLATE 0.2 MG/ML VIAL IV ONE (13:05)
[2021-12-15] MEDS ORDERED: diphenhydrAMINE 50 MG/ML VIAL ONE (13:05)
[2021-12-15] MEDS ORDERED: METOPROLOL TARTRATE 5 MG/5 ML VIAL IV ONE (13:05)
[2021-12-15] MEDS ORDERED: ROCURONIUM 10 MG/ML ML IV ONE (13:05)
[2021-12-15] MEDS ORDERED: ePHEDrine 50 MG/5 ML SYRINGE (ANEST) IV ONE (13:05)
[2021-12-15] MEDS ORDERED: ONDANSETRON 4 MG/2 ML VIAL ONE (13:05)
[2021-12-15] MEDS ORDERED: PROPOFOL 200 MG/20 ML VIAL IV ONE (13:05)
[2021-12-15] MEDS ORDERED: KETAMINE 50 MG/ML Syringe (ANEST) IV ONE (13:05)
[2021-12-15] MEDS ORDERED: PHENYLephrine 1 MG/10 ML SYRINGE (ANEST) ONE (13:05)
[2021-12-15] MEDS ORDERED: LIDOCAINE HCL/PF 100 MG/5 ML SYRINGE IV ONE (13:05)
[2021-12-15] MEDS ORDERED: fentaNYL 100 MCG/2 ML VIAL IV ONE (13:05)
[2021-12-15] MEDS ORDERED: ROPIVACAINE HCL/PF 20 ML VIAL IJ ONE (13:05)
[2021-12-15] MEDS ORDERED: MAGNESIUM SULFATE 2 GM/50 ML BAG IV ONE (13:05)
[2021-12-15] MEDS ORDERED: DEXAMETHASONE 10 MG/ML VIAL ONE (13:05)
[2021-12-15] MEDS ORDERED: GENTAMICIN SULFATE 800 MG/20 ML VIAL IR ONE (13:41)
--- NOTE | 2021-12-15 15:22 | XRay Report ---
CLINICAL INFORMATION: Left hip prosthesis revision FINDINGS: The left hip prostheses revision is anatomically aligned. The right hip is normal. There are no osseous abnormalities. Soft tissue swelling over the surgical site-as expected. IMPRESSION: Left hip prosthesis revision in anatomic alignment. Interpreted and Authenticated by: Roger Nicole 12/15/21
[2021-12-15] MEDS ORDERED: ONDANSETRON 4 MG/2 ML VIAL IV PRN ×4 (15:26→19:15)
[2021-12-15] MEDS ORDERED: NALOXONE HCL 0.4 MG/ML VIAL IV PRN (15:26)
[2021-12-15] MEDS ORDERED: PROMETHAZINE 25 MG/ML VIAL IV PRN (15:26)
[2021-12-15] MEDS ORDERED: BENZOCAINE/MENTHOL 1 LOZENGE PO PRN ×3 (15:26→19:15)
[2021-12-15] MEDS ORDERED: IPRATROPIUM/ALBUTEROL 3 ML AMPUL.NEB NEB PRN (15:26)
[2021-12-15] MEDS ORDERED: MEPERIDINE 25 MG/ML VIAL IV PRN (15:26)
[2021-12-15] MEDS ORDERED: HYDROmorphone 0.5 MG/0.5 ML SYRINGE IV PRN (15:26)
[2021-12-15] MEDS ORDERED: LACTATED RINGERS 250 ML IV PRN (15:26)
[2021-12-15] MEDS ORDERED: diphenhydrAMINE 50 MG/ML VIAL IV PRN (15:26)
[2021-12-15] MEDS ORDERED: LACTATED RINGERS 1,000 ML IV SCH ×2 (15:30→15:45)
[2021-12-15] MEDS ORDERED: oxyCODONE/APAP 5/325MG TABLET PO PRN (15:31)
[2021-12-15] MEDS ORDERED: FLEETS ADULT ENEMA PR PRN (15:31)
[2021-12-15] MEDS ORDERED: BISACODYL 10 MG SUPP.RECT PR PRN ×2 (15:31→19:15)
[2021-12-15] MEDS ORDERED: ACETAMINOPHEN 325 MG TABLET PO PRN ×2 (15:31→19:15)
[2021-12-15] MEDS ORDERED: MAGNESIUM HYDROXIDE 30 ML ORAL.SUSP PO PRN ×2 (15:31→19:15)
[2021-12-15] MEDS ORDERED: POLYETHYLENE GLYCOL 3350 17 GM PACKET PO PRN (15:31)
[2021-12-15] MEDS ORDERED: TRANEXAMIC ACID 1,000 MG/10 ML VIAL IV ONE ×2 (15:31→19:15)
[2021-12-15] MEDS ORDERED: TEMAZEPAM 15 MG CAPSULE PO PRN (15:31)
--- NOTE | 2021-12-15 15:31 | Brief Operative Note ---
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
--- NOTE | 2021-12-15 15:51 | Discharge Plan ---
Discharge Instructions - [facility] Patient Instructions Total Hip Protocol: Follow activity instructions as provided by Physical Therapy. Dressing Care: May shower in 2 days and Aquacel Ag - leave on for 5 days Discharge Plan Patient/Caregiver Discharge Instructions Activity: ambulate only with your walker and as per physical therapy Diet: Regular Diet Prescriptions: New aspirin [Ecotrin Low Strength] 81 mg tablet,delayed release (DR/EC) 81 mg PO BID Qty: 60 0RF oxycodone-acetaminophen 5-325 mg tablet 1 - 2 tab PO Q4H MDD 8 PRN (Reason: pain) Qty: 75 0RF docusate sodium 100 mg capsule 100 mg PO BID Qty: 60 0RF No Action albuterol sulfate [ProAir HFA] 90 mcg/actuation HFA aerosol inhaler 2 puff INHALATION DAILYP PRN (Reason: Allergy Symptoms) 0RF doxepin 100 mg capsule 200 mg PO HS 0RF acetaminophen [Tylenol] 325 mg tablet 650 mg PO QIDP PRN (Reason: Pain) 0RF ibuprofen 800 mg tablet 800 mg PO BIDP PRN (Reason: Pain) 0RF Label Comments: HOLDING FOR SURGERY duloxetine 60 MG capsule,delayed release(DR/EC) 120 mg PO DAILY 0RF Label Comments: PLUS DULOXETINE 20 MG TO EQUAL TOTAL DOSE OF 140 MG. lamotrigine 200 MG tablet 200 mg PO BID 0RF calcium carbonate 500 MG tablet 500 mg PO DAILY 0RF ascorbic acid (vitamin C) 500 MG tablet 3,000 mg PO DAILY 0RF Label Comments: HOLDING FOR SURGERY docusate sodium 100 mg capsule 100 mg PO BID Qty: 60 0RF esomeprazole magnesium [Nexium] 40 mg Capsule,Delayed Release(Dr/Ec) 40 mg PO ACB 0RF aspirin 81 mg Tablet,Chewable 81 mg PO DAILY 0RF Label Comments: HOLDING FOR SURGERY zinc 50 mg Tablet 50 mg PO DAILY 0RF bupropion HCl [Wellbutrin XL] 150 mg Tablet Extended Release 24 Hr 150 mg PO DAILY 0RF duloxetine 20 mg capsule,delayed release(DR/EC) 20 mg PO DAILY 0RF Label Comments: PLUS DULOXETINE 120 MG TO EQUAL TOTAL DOSE OF 140 MG. cholecalciferol (vitamin D3) [Vitamin D3] 125 mcg (5,000 unit) Tablet 125 mcg PO DAILY 0RF sennosides [senna] 8.6 mg Tablet 8.6 mg PO QID 0RF magnesium 250 mg Tablet 250 mg PO DAILY 0RF methocarbamol 750 mg tablet 750 mg PO DAILYP PRN (Reason: Muscle Spasm) 0RF multivitamin tablet 1 tab PO DAILY 0RF Other Ambulatory Orders: Physical Therapy DC - [facility] (Routine) Location: None Selected Ordered By: Wicho Bartlett Toilet Riser Discharge Order (ONCE) Location: None Selected Ordered By: Wicho Bartlett Walker (ONCE) Location: None Selected Ordered By: Wicho Bartlett Follow Up Plan Follow up with: Wicho Bartlett PA-C [Physician Search Director] - Patient Disposition: Home, Self-Care Prognosis: Good Rehab Potential: Good I certify that the patient requires SNF services: No Overall status at discharge: patient is progressing back to baseline Discharge Orders: Discharge Order (Routine); Ordered 12/16/21 Ordered By: Wicho Bartlett
[2021-12-15] MEDS: fentaNYL 100 MCG/2 ML VIAL IV PRN ×4 (16:18→16:31)
[2021-12-15] MEDS: HYDROmorphone 1 MG/ML SYRINGE IV PRN ×4 (17:12→23:28)
--- NOTE | 2021-12-15 17:40 | XRay Report ---
CLINICAL INFORMATION: Left total hip prostheses FINDINGS: The left hip prostheses is anatomically aligned. The right hip is normal. There are no osseous abnormalities. Soft tissue swelling over the surgical site-as expected. IMPRESSION: Left hip prostheses in anatomic alignment Interpreted and Authenticated by: Roger Nicole 12/15/21
[2021-12-15] MEDS ORDERED: ceFAZolin 1 GM VIAL IV SCH (19:15)
[2021-12-15] MEDS ORDERED: SENNOSIDES 1 TABLET PO SCH (21:00)
[2021-12-15] MEDS ORDERED: DOCUSATE SODIUM 100 MG CAPSULE PO SCH (21:00)
[2021-12-15] MEDS: DOCUSATE SODIUM 100 MG CAPSULE PO SCH (21:19)
[2021-12-15] MEDS: 0.9 % SODIUM CHLORIDE 10 ML SYRINGE IV SCH (21:19)
[2021-12-15] MEDS: ASPIRIN 81 MG TAB.CHEW CHEWED SCH (21:19)
[2021-12-15] MEDS: LACTATED RINGERS 1,000 ML IV SCH (21:31)
[2021-12-15] MEDS: ceFAZolin 1 GM VIAL IV SCH (21:55)
[2021-12-15] MEDS ORDERED: 0.9 % SODIUM CHLORIDE 10 ML SYRINGE IV SCH (22:00)
[2021-12-16] MEDS: oxyCODONE/APAP 5/325MG TABLET PO PRN ×3 (00:29→08:27)
[2021-12-16] MEDS: HYDROmorphone 1 MG/ML SYRINGE IV PRN ×3 (01:44→07:07)
[2021-12-16] MEDS: 0.9 % SODIUM CHLORIDE 10 ML SYRINGE IV SCH (04:42)
[2021-12-16] MEDS: ceFAZolin 1 GM VIAL IV SCH (04:42)
[2021-12-16] MEDS: LACTATED RINGERS 1,000 ML IV SCH (05:05)
--- NOTE | 2021-12-16 07:19 | Orthopedic Progress Note ---
SUBJECTIVE Subjective Patient information: Note initiated : 12/16/21 at 7:18 am Service Date, if different from initiated Date: [] Patient: Jennifer Bernard 51 y/o F admitted on 12/15/21 for Left Total Hip Arthroplasty Revision Posterior . Chief Complaint: [Pt is stable this morning on post operative day without any significant concerns or complaints. Patients vital signs have remained stable. Patients dressing is dry and is grossly intact from a neurovascular and motor standpoint. Patients 10 point ROS is otherwise negative. ] Constitutional Vitals: Vital Signs Temp Pulse Resp BP Pulse Ox 97.5 F 81 16 114/68 97 12/16/21 03:44 12/16/21 03:44 12/16/21 03:44 12/16/21 03:44 12/16/21 03:44 Period Temp Pulse Resp BP Sys/Beltran Pulse Ox Last 24 Hr 97.3 F-99.8 F 72-111 12-23 98-133/55-89 86-98 Intake and Output 12/15/21 12/16/21 12/16/21 21:59 05:59 13:59 Intake Total 2650 1970 Output Total 1750 1800 Balance 900 170 Weight 204 lb 14.4 oz Intake & Output: Intake & Output 12/15/21 12/16/21 12/16/21 21:59 05:59 13:59 Intake Total 2650 1970 Output Total 1750 1800 Balance 900 170 Weight 204 lb 14.4 oz Intake: IV 772 Lactated Ringers 1,000 ml @ 100 772 mls/hr IV .Q10H [facility] Rx#: [id number] Oral 450 1198 IV - Manual Only 2200 Output: Urine Catheter Amount 800 Void Amount 550 1800 Estimated Blood Loss 400 Other: Meal Dinner Percent of Meal Consumed 75 Urine Appearance Clear Clear Urine Color Bright Yellow Bright Yellow Urine Odor Normal Extremities Exam Extremities exam: Present normal capillary refill, normal inspection, Foot pink and warm and neurovascular intact OBJ DATA Labs CBC & Chem 7: 12/16/21 05:22 12/09/21 14:41 Labs: Abnormal Lab Results 12/16/21 05:22 Hct 29.8 L Meds: Medications Acetaminophen (Acetaminophen 325 Mg Tablet) 650 mg PO Q6HP PRN; Protocol PRN Reason: Per Pain Protocol/Fever > 101 Aspirin (Aspirin 81 Mg Tab.Chew) 81 mg CHEWED BID [facility] Last Admin: 12/15/21 21:19 Dose: 81 mg Documented by: Bisacodyl (Bisacodyl 10 Mg Supp.Rect) 10 mg NH Q2-3DAYS PRN PRN Reason: Constipation Docusate Sodium (Docusate Sodium 100 Mg Capsule) 100 mg PO BID [facility] Last Admin: 12/15/21 21:19 Dose: 100 mg Documented by: Hydromorphone HCl (Hydromorphone 1 Mg/Ml Syringe) 0.5 - 2 mg IV Q2HP PRN; Protocol PRN Reason: Per Pain Protocol Last Admin: 12/16/21 07:07 Dose: 0.5 mg Documented by: Magnesium Hydroxide (Magnesium Hydroxide 30 Ml Oral.Susp) 30 ml PO BIDP PRN PRN Reason: Constipation Ondansetron HCl (Ondansetron 4 Mg/2 Ml Vial) 4 mg IV Q4HP PRN; Protocol PRN Reason: Nausea And Vomiting Oxycodone/Acetaminophen (Oxycodone/Apap 5/325mg Tablet) 1 - 2 tab PO Q4HP PRN; Protocol PRN Reason: Per Pain Protocol Last Admin: 12/16/21 04:41 Dose: 2 tab Documented by: Polyethylene Glycol (Polyethylene Glycol 3350 17 Gm Packet) 17 gm PO DAILYP PRN PRN Reason: Constipation Senna (Sennosides 1 Tablet) 2 tab PO HS [facility] Last Admin: 12/15/21 21:19 Dose: 2 tab Documented by: Sodium Biphosphate/Sodium Phosphate (Fleets Adult Enema) 1 dose NH Q3-4DAYS PRN PRN Reason: Constipation Sodium Chloride (0.9 % Sodium Chloride 10 Ml Syringe) 10 ml IV Q8 [facility] Last Admin: 12/16/21 04:42 Dose: 10 ml Documented by: Temazepam (Temazepam 15 Mg Capsule) 15 mg PO HSP PRN PRN Reason: Insomnia Throat Lozenges (Benzocaine/Menthol 1 Lozenge) 1 lozenge PO PRN PRN PRN Reason: Sore Throat A/P Narrative A/P Narrative: The patient has been educated regarding dressing care, , restrictions, and follow up appointments. The patient has had all necessary DME prescribed. The patient has remained relatively stable during their hospital course. Time Spent With Patient Time: Total time spent is greater than 50% in coordination of care (as documented) at patient's floor/unit and/or counseling patient: Total time spent with greater than 50% in coordination of care (as documented) at patient's floor/unit and/or counseling patient:: less than 15 minutes Critical Care Time: No
--- NOTE | 2021-12-16 08:15 | Operative Note ---
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 PROCEDURE: Left total hip revision of the femoral stem and ball. SURGEON: Kostas Bennett M.D. ARTIST AND REPERTOIRE MANAGER: Wicho Bartlett PA-C. This providers expertise and technical skill were required throughout the case. The MADIE assisted with preoperative coordination, intraoperative retraction, wound closure, and dressing and splint application, as well as postoperative documentation and care coordination. COMPLICATIONS: None. ESTIMATED BLOOD LOSS: 150 mL. SPECIMENS: High-powered field, which showed no inflammation. CONDITION: Stable. DISPOSITION: To PACU. DESCRIPTION OF PROCEDURE: The patient was brought to the operating room, put to sleep with general LMA anesthesia. The left hip was sterilely prepped and draped in the usual sterile fashion. Patient was turned into right lateral position. We confirmed the operative site by initials, consent form, and x-ray. A superior approach was placed through her prior scar and extended distally. A Charnley retractor was then placed and we exposed the capsule, which was released. We dislocated the hip and removed the ball. It was not frankly loose, but we used osteotomes to loosen the stem and then a trochanteric osteotomy was performed. This was widened slightly using osteotomes and then the stem was removed. We then placed a cable to reduce the osteotomy site and then reamed up to the size of 14 religious modular stem. The distal fragment was placed. We used a 19 proximal body with a +20 mm length. We then used 5 mm additional length on the neck. This gave excellent stability. Image confirmed near equal leg length. We irrigated thoroughly and released any tissue. We had sent specimens to the pathologist for high-powered field and there were no white blood cells seen on the specimens we sent. We tested for stability, had excellent range of motion. We repaired the capsule with #1 Ethibond, closed the fascial layer and the IT band with #1 Stratafix x2, closed the skin with Stratafix and then adhesive closure. The patient tolerated this well. There were no complications. Blood loss about 450 mL. RBH:alban Job ID: [id number] Doc ID: [id number] Kostas Bennett MD
[2021-12-16] MEDS: DOCUSATE SODIUM 100 MG CAPSULE PO SCH (08:27)
[2021-12-16] MEDS: ASPIRIN 81 MG TAB.CHEW CHEWED SCH (08:27)
== END 2021-12-16 08:58 | disposition home or self-care (01) | DRG 468 ==
LOC: MEDSUR 09:14 → EDSTATUS 12:30
PROVIDERS: ADMIT Orthopaedic Surgery; ATTEND Orthopaedic Surgery